=== PATIENT | female | born 1955 | race Caucasian/White ===

== ENCOUNTER → 2017-01-10 | Outpatient (CLI) | payer OTHER ==
--- NOTE | ~2017-01-10 | MY29 ---
[facility] A Service [facility] RADIOLOGY TEXT RESULTS PATIENT: MARY LEA LOCATION: [facility] : 51 UNIT #: [id number] AGE: [address]: Kathleen Reyes MD SEX: F ORDER DR: [id number] [facility] [address] [place], [place] [address] [id number] O MR#: [id number] Acc #: [id number] NAME: MARY LEA : 1955 SEX: F STUDY DATE/TIME: 01/10/2017 9:58 UNIT: [facility] ROOM: STUDY DESCRIPTION: MY PETROS SCREENING W/ CAD BILAT Attending Physician: Kathleen Reyes M.D. Referring Physician: Kathleen Reyes M.D. Ordering Physician: Kathleen Reyes M.D. Primary Care Physician: Brando Ortega M.D. MEDICAL IMAGING REPORT This report is preliminary unless electronic signature is present EXAM Bilateral digital screening mammogram with CAD COMPARISON October 10, 2015; September 20, 2014; August 27, 2013; August 15, 2012; May 14, 2011; April 13, 2010; January 09, 2009; December 04, 2007; November 28, 2006. INDICATION Breast cancer screening. 61-year-old asymptomatic female. No personal or family history breast cancer. FINDINGS The breasts are almost entirely fatty. There are intact bilateral subpectoral saline breast implants. IMPRESSION 1. No mammographic evidence of malignancy. Continued annual screen mammography and clinical breast exam recommended. 2. Intact saline breast implants. Patients over the age of 40 are entered into a reminder system with target due date for the next mammogram. A result letter will also be sent to the patient. BIRADS: 2 Benign finding Dictated by... Rodrick Tsang M.D. THIS IS AN ELECTRONICALLY VERIFIED REPORT Rodrick Tsang M.D. at 01/18/2017 2:51 AM [facility] A Service [facility] RADIOLOGY TEXT RESULTS PATIENT: [facility]ARY LE[id number] : 51 UNIT #: [id number] AGE: [address]: Kathleen Reyes MD SEX: F ORDER DR: FILI/abbie TD: 01/10/2017 20:24 JOB #: [id number] MEDICAL IMAGING REPORT Page 1 of 1 COPY
== END | disposition home or self-care (01) ==
LOC: CWCC 09:02
DX: Z12.31 Encounter for screening mammogram for malignant neoplasm of breast (principal); Z98.82 Breast implant status
CPT/HCPCS: G0202